=== PATIENT | male | born 1930 | race African-American/Black ===

== ENCOUNTER 2018-11-21 15:38 | Inpatient (IN) | payer MEDICARE, MEDICAID ==
[~2018-11-21] VITALS: Ht 170.2 cm; Wt 58.1 kg
[2018-11-21 16:46] LABS: BASOPHILS % 0.5 % (0.0-2.0); EOSINOPHILS % 0.3 % (0.0-5.0); HEMATOCRIT. 36.5 % (42.0-52.0); HEMOGLOBIN. 12.1 g/dL (14.0-18.0); LYMPHOCYTES % 13.6 % (20.0-50.0); MEAN CORPUSCULAR HEMOGLOBIN 28.2 pg (28.0-32.0); MEAN CORPUSCULAR VOLUME 84.7 fL (80.0-94.0); MEAN PLATELET VOLUME 7.3 fl (7.4-10.4); NEUTROPHILS % 78.6 % (40.0-76.0); PLATELET 306 x1000/uL (130-400); RED BLOOD CELL COUNT 4.31 mill/uL (4.7-6.1); RED CELL DISTRIBUTION WIDTH 15.7 % (11.6-14.6)
[2018-11-21 16:54] LABS: CHLORIDE 103 mEq/L (98-107)
[2018-11-21 16:55] LABS: INR 1.1; PARTIAL THROMBOPLASTIN TIME 26.9 sec (23.4-31.0); PROTHROMBIN TIME 10.9 sec (9.1-11.1)
[2018-11-21] MEDS ORDERED: MORPHINE SULFATE 10 MG/ML CPJ IV ONE (17:15)
[2018-11-21] MEDS ORDERED: ONDANSETRON HCL 4MG/2ML INJ IV ONE (17:15)
[2018-11-21] MEDS ORDERED: SODIUM CHLORIDE 0.9% 1,000 ML IV ONE (21:16)
[2018-11-21] MEDS ORDERED: GUAIFENESIN 200MG/10ML SUGAR FREE UDC PO PRN (22:00)
[2018-11-21] MEDS ORDERED: DIPHENHYDRAMINE 50MG/ML VIAL IV PRN (22:00)
[2018-11-21] MEDS ORDERED: ZOLPIDEM TARTRATE 5MG TABLET PO PRN (22:00)
[2018-11-21] MEDS ORDERED: NA PHOS,M-B/NA PHOS,DI-BA ENEMA 118ML PR PRN (22:00)
[2018-11-21] MEDS ORDERED: MAGNESIUM/ALUMINUM HYDROXIDE/SIMETHICONE 30ML UDC PO PRN (22:00)
[2018-11-21] MEDS ORDERED: TRAMADOL 50MG TABLET PO PRN (22:00)
[2018-11-21] MEDS ORDERED: DOCUSATE SODIUM 100MG CAPSULE PO PRN (22:00)
[2018-11-21] MEDS ORDERED: LORAZEPAM 0.5MG TABLET PO PRN (22:00)
[2018-11-21] MEDS ORDERED: MORPHINE SULFATE 4 MG/ML CPJ (NOT FOR IM USE) IV PRN (22:00)
[2018-11-21] MEDS ORDERED: NITROGLYCERIN 0.4MG TABLET SL SL PRN (22:00)
[2018-11-21] MEDS ORDERED: ONDANSETRON HCL 4MG/2ML INJ IV PRN (22:00)
[2018-11-21] MEDS ORDERED: ACETAMINOPHEN 325MG TABLET PO PRN (22:00)
[2018-11-21] MEDS ORDERED: CLONIDINE 0.1MG TABLET PO PRN (22:00)
[2018-11-21] MEDS ORDERED: IPRATROPIUM/ALBUTEROL 0.5-3(2.5)MG/3ML NEB INH PRN (22:00)
[2018-11-21 22:47] LABS: FOLIC ACID (FOLATE) SERUM 5.6 ng/mL (>5.38)
[2018-11-22 00:21] LABS: CREATINE KINASE 63 IU/L (39-308); CREATINE KINASE MB FRACTION 1.1 ng/mL (0.5-3.6)
[2018-11-22 06:46] LABS: CREATINE KINASE 58 IU/L (39-308)
[2018-11-22 06:47] LABS: CREATINE KINASE MB FRACTION < 1.0 ng/mL (0.5-3.6)
[2018-11-22 06:51] LABS: *AMPHETAMINES SCREEN URINE NEGATIVE (NEGATIVE); *BARBITURATES SCREEN URINE NEGATIVE (NEGATIVE); *BENZODIAZEPINES SCREEN URINE NEGATIVE (NEGATIVE); *COCAINE SCREEN URINE NEGATIVE (NEGATIVE); METHADONE URINE SCREEN NEGATIVE (NEGATIVE); OPIATES URINE SCREEN PRESUMTIVE POSITIVE (NEGATIVE)
[2018-11-22 06:52] LABS: CANNABINOID URINE SCREEN NEGATIVE (NEGATIVE); PHENCYCLIDINE URINE SCREEN NEGATIVE (NEGATIVE)
[2018-11-22] MEDS: FERROUS SULFATE 300MG/5ML UDC PO SCH ×3 (08:47→16:29)
[2018-11-22 09:00] VITALS: BP 134/61
[2018-11-22] MEDS: ENOXAPARIN 40MG/0.4ML SYR SUBCUT SCH (09:00)
[2018-11-22] MEDS: ZINC SULFATE 220 MG ( 50 ) CAPSULE PO SCH (09:00)
[2018-11-22] MEDS: FAMOTIDINE 20MG TABLET PO SCH ×2 (09:00→21:34)
[2018-11-22] MEDS: LISINOPRIL 20MG TABLET PO SCH ×2 (09:00→21:00)
[2018-11-22] MEDS: ASCORBIC ACID 500 MG TABLET PO SCH ×2 (09:00→21:34)
[2018-11-22] MEDS: METOPROLOL TARTRATE 25MG TABLET PO SCH ×2 (09:00→21:34)
[2018-11-22 11:43] VITALS: BP 134/61
[2018-11-22] MEDS: DEXT 5%/0.45% NACL 1000ML 1,000 ML IV SCH ×2 (12:14→22:47)
[2018-11-22 15:56] VITALS: BP 138/59
[2018-11-22 20:00] VITALS: BP 130/68
[2018-11-23] VITALS: BP 146/63
[2018-11-23 04:00] VITALS: BP 136/71
[2018-11-23] MEDS: DEXT 5%/0.45% NACL 1000ML 1,000 ML IV SCH ×2 (04:03→18:14)
[2018-11-23] MEDS: FERROUS SULFATE 300MG/5ML UDC PO SCH ×3 (07:50→17:50)
[2018-11-23 08:00] VITALS: BP 144/60
[2018-11-23] MEDS: METOPROLOL TARTRATE 25MG TABLET PO SCH ×2 (09:00→23:45)
[2018-11-23] MEDS: ASCORBIC ACID 500 MG TABLET PO SCH ×2 (09:00→23:37)
[2018-11-23] MEDS: LISINOPRIL 20MG TABLET PO SCH ×2 (09:00→23:38)
[2018-11-23] MEDS: FAMOTIDINE 20MG TABLET PO SCH ×2 (09:00→23:45)
[2018-11-23] MEDS: ZINC SULFATE 220 MG ( 50 ) CAPSULE PO SCH (09:00)
[2018-11-23 09:49] LABS: T4 FREE 1.6 ng/dL (0.76-1.46)
[2018-11-23] MEDS: ENOXAPARIN 40MG/0.4ML SYR SUBCUT SCH (10:45)
[2018-11-23 11:32] VITALS: BP 118/61
[2018-11-23] MEDS ORDERED: TRANEXAMIC ACID 1,000 MG in SODIUM CHLORIDE 0.9% 100 ML IV NR (14:15)
[2018-11-23] MEDS ORDERED: IOHEXOL-350 100 ML BOTTLE ONE (14:57)
[2018-11-23] MEDS ORDERED: BACITRACIN 15GM TUBE TOP ONE (16:15)
[2018-11-23] MEDS ORDERED: VANCOMYCIN HCL 500 MG/VIAL ONE (16:16)
[2018-11-23] MEDS ORDERED: CEFAZOLIN SODIUM 1000MG/VIAL ONE (17:10)
[2018-11-23] MEDS ORDERED: ROCURONIUM BROMIDE 10MG/ML VIAL 5ML IV ONE (17:10)
[2018-11-23] MEDS ORDERED: PROPOFOL 200MG/20ML VIAL IV ONE (17:10)
[2018-11-23] MEDS ORDERED: NEOSTIGMINE METHYLSULFATE 1MG/ML 10 ML VIAL ONE (17:10)
[2018-11-23] MEDS ORDERED: GLYCOPYRROLATE 0.2 MG/ML 2ML VIAL ONE (17:10)
[2018-11-23] MEDS ORDERED: LIDOCAINE HCL/PF 1% 10 MG/ML 5ML VIAL ONE (17:10)
[2018-11-23] MEDS ORDERED: FENTANYL CITRATE/PF 50MCG/ML 2ML VIAL ONE ×2 (17:10→18:16)
[2018-11-23] MEDS ORDERED: MIDAZOLAM HCL 2 MG/2 ML VIAL ONE (17:10)
[2018-11-23] MEDS ORDERED: SODIUM CHLORIDE 0.9% 10ML VIAL ONE (17:10)
[2018-11-23] MEDS ORDERED: SUCCINYLCHOLINE CHLORIDE 200MG/10ML IV ONE (17:10)
[2018-11-23] MEDS ORDERED: PHENYLEPHRINE HCL 10 MG/ML 1ML (IV VIAL) IV ONE (17:11)
[2018-11-23] MEDS ORDERED: EPHEDRINE SULFATE 50MG/ML VIAL ONE (17:11)
[2018-11-23] MEDS ORDERED: ONDANSETRON HCL 4MG/2ML INJ ONE (17:11)
[2018-11-23] MEDS ORDERED: METOCLOPRAMIDE HCL 10MG/2ML VIAL ONE (17:11)
[2018-11-23] MEDS ORDERED: HYDROCODONE/ACETAMINOPHEN 10/325MG TABLET PO PRN (17:15)
[2018-11-23] MEDS ORDERED: HYDROCODONE/ACETAMINOPHEN 5/325MG TABLET PO PRN (17:15)
[2018-11-23] MEDS ORDERED: ONDANSETRON HCL 4MG/2ML INJ IV PRN ×2 (17:15→18:15)
[2018-11-23] MEDS ORDERED: ACETAMINOPHEN 325MG TABLET PO PRN (17:15)
[2018-11-23] MEDS ORDERED: SODIUM CHLORIDE 0.9% 1,000 ML IV ONE (18:13)
[2018-11-23] MEDS ORDERED: HYDROMORPHONE HCL/PF 2MG/ML CPJ IV PRN (18:15)
[2018-11-23] MEDS ORDERED: MORPHINE SULFATE 4 MG/ML CPJ (NOT FOR IM USE) IV PRN (18:15)
[2018-11-23] MEDS ORDERED: MEPERIDINE HCL/PF 25MG/ML CPJ IV PRN (18:15)
[2018-11-23 20:53] VITALS: BP 140/71
[2018-11-23] MEDS ORDERED: CEFAZOLIN 1000MG PREMIX 50 ML IV SCH (22:00)
[2018-11-23 23:05] LABS: CREATINE KINASE 209 IU/L (39-308); CREATINE KINASE MB FRACTION 2.7 ng/mL (0.5-3.6)
[2018-11-24] VITALS: BP 142/50
[2018-11-24] MEDS: CEFAZOLIN 1000MG PREMIX 50 ML IV SCH ×3 (03:31→21:31)
[2018-11-24 04:00] VITALS: BP 116/57
[2018-11-24] MEDS: DEXT 5%/0.45% NACL 1000ML 1,000 ML IV SCH ×3 (04:14→22:36)
[2018-11-24] MEDS: FERROUS SULFATE 300MG/5ML UDC PO SCH ×3 (07:50→17:34)
[2018-11-24 08:00] VITALS: BP 122/54
[2018-11-24] MEDS: METOPROLOL TARTRATE 25MG TABLET PO SCH ×3 (09:00→21:00)
[2018-11-24] MEDS: LISINOPRIL 20MG TABLET PO SCH ×2 (09:17→21:00)
[2018-11-24] MEDS: ASCORBIC ACID 500 MG TABLET PO SCH ×2 (09:17→22:34)
[2018-11-24] MEDS: FAMOTIDINE 20MG TABLET PO SCH ×2 (09:18→22:33)
[2018-11-24] MEDS: ZINC SULFATE 220 MG ( 50 ) CAPSULE PO SCH (09:18)
[2018-11-24] MEDS: ENOXAPARIN 40MG/0.4ML SYR SUBCUT SCH (09:18)
[2018-11-24 11:41] VITALS: BP 96/36
[2018-11-24 16:00] VITALS: BP 106/38
[2018-11-24 17:39] LABS: CREATINE KINASE 199 IU/L (39-308)
[2018-11-24 17:41] LABS: CREATINE KINASE MB FRACTION 1.6 ng/mL (0.5-3.6)
[2018-11-24 20:00] VITALS: BP 94/40
[2018-11-25] VITALS: BP 112/46
[2018-11-25 04:00] VITALS: BP 115/49
[2018-11-25] MEDS: CEFAZOLIN 1000MG PREMIX 50 ML IV SCH ×3 (04:51→18:08)
[2018-11-25] MEDS: FERROUS SULFATE 300MG/5ML UDC PO SCH ×3 (07:50→18:08)
[2018-11-25 08:00] VITALS: BP 125/65
[2018-11-25] MEDS: ENOXAPARIN 40MG/0.4ML SYR SUBCUT SCH (10:31)
[2018-11-25] MEDS: FAMOTIDINE 20MG TABLET PO SCH ×2 (10:32→21:40)
[2018-11-25] MEDS: ZINC SULFATE 220 MG ( 50 ) CAPSULE PO SCH (10:32)
[2018-11-25] MEDS: METOPROLOL TARTRATE 25MG TABLET PO SCH (10:32)
[2018-11-25] MEDS: LISINOPRIL 20MG TABLET PO SCH ×2 (10:32→21:40)
[2018-11-25] MEDS: ASCORBIC ACID 500 MG TABLET PO SCH ×2 (10:32→21:39)
[2018-11-25] MEDS: DEXT 5%/0.45% NACL 1000ML 1,000 ML IV SCH ×2 (10:34→21:38)
[2018-11-25 12:00] VITALS: BP 114/46
[2018-11-25 16:00] VITALS: BP 113/41
[2018-11-25 20:28] VITALS: BP 113/49
[2018-11-26] VITALS: BP 127/46
[2018-11-26] MEDS: CEFAZOLIN 1000MG PREMIX 50 ML IV SCH (03:35)
[2018-11-26 04:25] VITALS: BP 107/46
[2018-11-26] MEDS: ENOXAPARIN 40MG/0.4ML SYR SUBCUT SCH (09:13)
[2018-11-26] MEDS: FAMOTIDINE 20MG TABLET PO SCH (09:14)
[2018-11-26] MEDS: ASCORBIC ACID 500 MG TABLET PO SCH (09:14)
[2018-11-26] MEDS: LISINOPRIL 20MG TABLET PO SCH (09:19)
[2018-11-26] MEDS: FERROUS SULFATE 300MG/5ML UDC PO SCH ×3 (09:19→18:12)
[2018-11-26] MEDS: ZINC SULFATE 220 MG ( 50 ) CAPSULE PO SCH (09:19)
[2018-11-26] MEDS: METOPROLOL TARTRATE 25MG TABLET PO SCH (09:19)
[2018-11-26] MEDS: DEXT 5%/0.45% NACL 1000ML 1,000 ML IV SCH (09:28)
[2018-11-26 10:00] VITALS: BP 131/50
[2018-11-26] MEDS ORDERED: NITROFURANTOIN 100MG M/M CAPSULE PO SCH (11:00)
[2018-11-26 12:00] VITALS: BP 159/59
[2018-11-26 13:35] LABS: HEMOGLOBIN 9.5 g/dL (14.0-18.0); MEAN CORPUSCULAR HEMOGLOBIN 27.7 pg (28.0-32.0); MEAN CORPUSCULAR VOLUME 84.3 fL (80.0-94.0); PLATELET 264 x1000/uL (130-400); RED BLOOD CELL COUNT 3.44 mill/uL (4.7-6.1); RED CELL DISTRIBUTION WIDTH 15.9 % (11.6-14.6)
[2018-11-26 16:00] VITALS: BP 133/44
== END 2018-11-26 19:15 | DRG 470 ==
LOC: ER 15:38 → 6WST 21:16 → EDBEDREQ 21:19 → EDBEDREQTM 21:19 → ENRESERV 11-22 07:25
PROVIDERS: ADMIT Internal Medicine; ATTEND Internal Medicine
PROC: 0SRR0JZ Replacement of Right Hip Joint, Femoral Surface with Synthetic Substitute, Open Approach (ICD-10-PCS; principal; 2018-11-23)
DX: S72.011A Unspecified intracapsular fracture of right femur, initial encounter for closed fracture (principal); D62 Acute posthemorrhagic anemia; E44.1 Mild protein-calorie malnutrition; M85.80 Other specified disorders of bone density and structure, unspecified site; W01.0XXA Fall on same level from slipping, tripping and stumbling without subsequent striking against object, initial encounter; J44.9 Chronic obstructive pulmonary disease, unspecified; I27.20 Pulmonary hypertension, unspecified; I50.9 Heart failure, unspecified; I11.0 Hypertensive heart disease with heart failure; M16.11 Unilateral primary osteoarthritis, right hip; Y93.01 Activity, walking, marching and hiking; Y92.89 Other specified places as the place of occurrence of the external cause; Z86.73 Personal history of transient ischemic attack (TIA), and cerebral infarction without residual deficits; Y99.8 Other external cause status; Z68.20 Body mass index [BMI] 20.0-20.9, adult; Z79.899 Other long term (current) drug therapy
CPT/HCPCS: 36415; 71045; 71275; 72170; 73502; 73700; 80061; 80305; 82550; 82553; 82607; 82746; 83036; 83540; 83550; 83880; 84439; 84443; 84484; 85027; 85379; 86850; 86900; 87077; 88305; 88311; 93005; 93306; 93970; 96374; 97110; 97162; 97166; 97530; 97535; 99285; C1713; C1776; C1893; J0330; J0690; J1200; J1650; J2250; J2270; J2370; J2405; J2704; J2710; J2765; J3010; J3370; J3490; J7030; J7050; Q9967; A4315